=== PATIENT | female | born 1965 | race Caucasian/White ===

== ENCOUNTER 2020-02-02 21:49 | Emergency (ER) | payer MEDICAID, SELFPAY ==
[2020-02-02 22:33] VITALS: BP 144/114; PULSE 93; RESP 18; TEMP 37.6; O2SAT 98; BMI 34.3
--- NOTE | 2020-02-02 22:38 | XRR_ITS ---
PROCEDURE INFORMATION: Exam: XR Soft Tissue Neck Exam date and time: 02/02/2020 11:11 PM Age: 54 years old Clinical indication: Mass, lump, or swelling in neck; Throat pain; Prior surgery; Surgery type: C-spine TECHNIQUE: Imaging protocol: XR of the soft tissues of the neck. COMPARISON: CR Cervical Spine Flex/Ext [id number] 12/23/2017 11:06 AM FINDINGS: Airway: Unremarkable. No abnormal narrowing. Soft tissues: Unremarkable. Normal epiglottis. No visible radiopaque foreign body. No visible soft tissue emphysema. Bones/joints: Previous cervical spine fusion with anterior compression plate and screw fixation C5, C6, and C7. XR/XR soft tissue neck [id number] IMPRESSION: Nonacute.
--- NOTE | 2020-02-02 22:38 | XR_ITS ---
WS: [id number] PORTABLE CHEST HISTORY: cough COMPARISON: 10/20/2015 Pulmonary hyperexpansion with changes of emphysema. No pneumonia. No pleural effusion or pneumothorax. Cardiac size: Normal. Mediastinum/Aorta: Normal mediastinum. No osseous abnormality seen. Dorsal column stimulator over the mid thorax. XR/XR chest 1V portable [id number] IMPRESSION: 1. Chronic emphysema with no pneumonia. 2. Normal vasculature.
[2020-02-02 23:16] LABS: Basophils # 0.1 10^3/uL (0.0-0.1); Basophils % 0.7 %; Eosinophils # 0.1 10^3/uL (0.0-0.8); Hematocrit 45.3 % (37.0-47.0); Hemoglobin 14.5 g/dL (11.5-15.3); Lymphocytes # 2.6 10^3/uL (0.8-4.8); Lymphocytes % 19.3 %; Mean Corpuscular Hemoglobin 30.6 pg (28.0-34.0); Mean Corpuscular Volume 95.6 fL (81-99); Mean Platelet Volume 10.4 fL (7.4-10.4); Neutrophils # 9.7 10^3/uL (1.8-7.7); Neutrophils % 71.8 %; Nucleated Red Blood Cells % 0 %; Platelet Count 363 10^3/cmm (130-400); Red Blood Count 4.74 10^6/uL (4.1-5.3); Red Cell Distribution Width 13.1 % (12.1-15.1); White Blood Count 13.5 10^3/uL (4.0-10.0)
--- NOTE | 2020-02-02 23:16 | ED_ITS ---
HPI - Fever General: Chief Complaint: Fever Stated Complaint: swollen throat Time Seen by Provider: 02/02/20 22:30 History of Present Illness: HPI Narrative: Akosua is a nice 54-year-old female who comes in complaining of sore throat, hoarse voice and fever. She states her symptoms started yesterday. Her temperature is been as high as 100.4. She has occasional cough that is nonproductive. She denies any chest pain or shortness of breath. She's her primary pain is in her throat. She denies being around anyone sick or ill. She doesn't have any other complaints or concerns. Associated symptoms: Deny abdominal pain, flank pain, chills, chest pain, confusion, diarrhea, dysuria, extremity pain, headache(s), nausea, night sweats or vomiting Review of Systems Const: Denies: fever(s), chills, body aches, fatigue, malaise, night sweats or diaphoresis Eyes: Denies: change in vision, blurry vision or blind spots ENMT: Reports: throat pain and hoarseness; Denies: odynophagia, ear or mastoid pain, ear discharge, change in hearing or nasal discharge Card: Denies: chest pain, palpitations, irregular heart rhythm, lightheadedness, syncope, pre-syncope, dyspnea on exertion or orthopnea Resp: Denies: dyspnea, productive cough, non-productive cough, wheezing, hemoptysis or chest congestion GI: Denies: abdominal pain, nausea, vomiting, hematemesis, coffee ground emesis, heartburn, diarrhea, constipation, GI cramping, hematochezia or melena : Denies: flank pain, dysuria, urinary frequency, urinary urgency, oliguria, urinary incontinence or hematuria Musc: Denies: neck pain, back pain, extremity pain, extremity swelling, joint pain, joint swelling, joint redness, joint warmth or joint stiffness Skin/Breast: Denies: rash, pruritus, erythema, skin tenderness or jaundice Neuro: Denies: headache(s), numbness in extremities, weakness in extremities, sensory changes, lack of coordination, difficulty walking, dizziness, vertigo, confusion or Slurred speech present Endo: Denies: polyuria, polydipsia, tired all the time, cold intolerance, excessive sweating, flushing, hot flashes or heat intolerance Avi/Lymph: Denies: easy bruising, easy bleeding, petechiae, purpura or enlarged lymph nodes All/Imm: Denies: urticaria, throat swelling, tongue swelling, facial swelling or acute wheezing PFSH ED PFSH: Social History Smoking and tobacco status: unknown if ever smoked Physical Exam Const: COMMON NORMALS: no acute distress, patient oriented x3, no limitations, healthy appearing and well nourished EXAM LIMITATIONS: no altered mental status GENERAL APPEARANCE: cooperative, well kempt and well developed HENMT: COMMON NORMALS: normocephalic, atraumatic, hearing grossly normal bilaterally, external ears normal, EAC's normal, Normal external nose present and moist oral mucous membranes HEAD & SCALP: normal to inspection, normocephalic and atraumatic FACE & SINUS: normal facial exam and face symmetric NOSE: Normal external nose present and Normal nares present EXTERNAL EAR: Yes external ears normal EXTERNAL AUDITORY CANAL: EAC's normal MOUTH: Normal oral and palatal mucosa present, lip normal and tongue normal Eye: COMMON NORMALS: Equal, round and reactive pupils present, EOMs intact bilaterally, conjunctivae normal and no scleral icterus GENERAL EYE: appearance normal, both eyes and all related structures ALIGNMENT: Yes alignment normal PERIORBITAL: periorbital findings normal EYELID: eyelids normal CONJUNCTIVA: Yes conjunctivae normal SCLERA: sclerae normal PUPIL: Yes Equal, round and reactive pupils present Neck/C-Spine: COMMON NORMALS: full ROM, no lymphadenopathy, supple, no meningeal signs and no JVD GENERAL: Yes normal visual inspection and Yes trachea midline CERVICAL SPINE: Yes cervical ROM normal Chest: COMMONS NORMALS: normal inspection of the chest and normal palpation of entire chest wall Resp: COMMON NORMALS: normal respiratory effort, No retractions, No use of accessory muscles and clear to auscultation bilaterally EFFORT & INSPECTION: Yes able to speak in complete sentences AUSCULTATION: clear to auscultation bilaterally, no crackles, no rales, no rhonchi and no wheezes Cardio: COMMON NORMALS: no JVD, regular rate, regular rhythm, S1 normal heart sound present, S2 normal heart sound present, No gallops present (Cardio), No clicks present (Cardio), No murmurs present (Cardio) and No rub (Cardio) RATE: regular rate RHYTHM: regular rhythm HEART SOUNDS: S1 normal heart sound present, S2 normal heart sound present, no click, no gallops, no murmurs and no rubs GI: COMMON NORMALS: Soft to palpation, non-tender, No hepatosplenomegaly prese nt and no masses PALPATION: Yes Soft to palpation, No Tenderness to palpation present (GI), No Guarding due to palpation present (GI), No Rigid due to palpation, Yes No hepatosplenomegaly present, No Hernia present, No Palpable mass present and No Pulsatile mass present : COMMON NORMALS: Yes no CVA tenderness BLADDER/KIDNEY EXAM: Yes no CVA tenderness EXTERNAL FEMALE EXAM: No Hernia present Back/Pelvis: COMMON NORMALS: no CVA tenderness, thoracic and lumbar spine normal to inspection, no thoracic nor lumbar tenderness and thoraco-lumbar ROM normal Extremity: COMMON NORMALS: normal to inspection, full ROM, capillary refill normal, no joint enlargement, no clubbing, cyanosis or edema and no calf tenderness Neuro: COMMON NORMALS: patient oriented x3, CN's II-XII intact bilaterally, moves all extremities, no focal motor deficits and no sensory deficits noted MENINGEAL SIGNS: Yes no meningeal signs SPEECH: speech normal Psych: COMMON NORMALS: mental status grossly normal, Normal thought process present, cooperative, normal affect, speech normal and activity/motor behavior normal APPEARANCE: Yes well kempt SPEECH: Yes normal speech THOUGHT PROCESS: Normal thought process present Skin: COMMON NORMALS: no rashes or lesions noted, turgor normal, no jaundice, no petechiae and no mottling GENERAL SKIN EXAM: no rashes or lesions noted and turgor normal Course Vital Signs: Vital signs: Vital Signs Temperature 99.6 F 02/02/20 22:33 Pulse Rate 87 02/03/20 01:25 Respiratory Rate 20 H 02/03/20 01:25 Blood Pressure 127/80 02/03/20 01:25 Pulse Oximetry 98 02/03/20 01:25 MDM - Fever MDM Narrative: Medical decision making narrative: Akosua is a very nice 54-year-old female comes in with a one-day history of sore throat. She is had a fever as high as 100.4 at home. She is had no ill contacts with anyone with COVID symptoms or otherwise. She is feeling better here and ready to go home. She understands she needs to quarantine herself until her COVID test is back. Until then I will empirically start her on Augmentin. She has no questions or concerns, she is no evidence of airway issue. Lab Data: Labs: Lab Results 02/02/20 02/02/20 02/02/20 Range/Units 22:50 22:50 23:56 WBC 13.5 H (4.0-10.0) 10^3/ uL RBC 4.74 (4.1-5.3) 10^6/u L Hgb 14.5 (11.5-15.3) g/dL Hct 45.3 (37.0-47.0) % MCV 95.6 (81-99) fL MCH 30.6 (28.0-34.0) pg MCHC 32.0 (30.0-36.0) g/dL RDW 13.1 (12.1-15.1) % Plt Count 363 (130-400) 10^3/c mm MPV 10.4 (7.4-10.4) fL Neut % (Auto) 71.8 % Lymph % (Auto) 19.3 % Cavalier % (Auto) 7.0 % Eos % (Auto) 1.0 % Baso % (Auto) 0.7 % Neut # (Auto) 9.7 H (1.8-7.7) 10^3/u L Lymph # (Auto) 2.6 (0.8-4.8) 10^3/u L Cavalier # (Auto) 1.0 H (0.2-0.9) 10^3/u L Eos # (Auto) 0.1 (0.0-0.8) 10^3/u L Baso # (Auto) 0.1 (0.0-0.1) 10^3/u L Nucleated RBC % (a uto) 0 % Nucleated RBCs # 0.0 /100WBC Sodium 140 (136-145) mmol/L Potassium 3.9 (3.5-5.1) mmol/L Chloride 102 (98-107) mmol/L Carbon Dioxide 25 (22-29) mmol/L Anion Gap 16.9 (5-19) BUN 10 (6-20) mg/dL Creatinine 0.8 (0.5-0.9) mg/dL GFR Calculation 74.5 L (90-130) mL/min Glucose 96 (65-115) mg/dL Calculated Osmolal ity 286 (285-295) mOsm/k g Calcium 9.3 (8.5-10.5) mg/dL Total Bilirubin 0.2 (0.15-1.2) mg/dL AST 16 (0-32) U/L ALT 15 (0-33) U/L Alkaline Phosphata se 92 (35-105) IU/L Troponin T Baselin e (0-10) ng/mL Total Protein 7.3 (6.6-8.7) g/dL Albumin 4.3 (3.5-5.2) g/dL Globulin 3.0 (1.3-4.6) g/dL Influenza Type A A g (Negative) Influenza Type B A g (Negative) Group A Strep Rapi d Negative (Negative) 02/03/20 02/03/20 Range/Units 00:33 01:05 WBC (4.0-10.0) 10^3/ uL RBC (4.1-5.3) 10^6/u L Hgb (11.5-15.3) g/dL Hct (37.0-47.0) % MCV (81-99) fL MCH (28.0-34.0) pg MCHC (30.0-36.0) g/dL RDW (12.1-15.1) % Plt Count (130-400) 10^3/c mm MPV (7.4-10.4) fL Neut % (Auto) % Lymph % (Auto) % Cavalier % (Auto) % Eos % (Auto) % Baso % (Auto) % Neut # (Auto) (1.8-7.7) 10^3/u L Lymph # (Auto) (0.8-4.8) 10^3/u L Cavalier # (Auto) (0.2-0.9) 10^3/u L Eos # (Auto) (0.0-0.8) 10^3/u L Baso # (Auto) (0.0-0.1) 10^3/u L Nucleated RBC % (a uto) % Nucleated RBCs # /100WBC Sodium (136-145) mmol/L Potassium (3.5-5.1) mmol/L Chloride (98-107) mmol/L Carbon Dioxide (22-29) mmol/L Anion Gap (5-19) BUN (6-20) mg/dL Creatinine (0.5-0.9) mg/dL GFR Calculation (90-130) mL/min Glucose (65-115) mg/dL Calculated Osmolal ity (285-295) mOsm/k g Calcium (8.5-10.5) mg/dL Total Bilirubin (0.15-1.2) mg/dL AST (0-32) U/L ALT (0-33) U/L Alkaline Phosphata se (35-105) IU/L Troponin T Baselin e 6 (0-10) ng/mL Total Protein (6.6-8.7) g/dL Albumin (3.5-5.2) g/dL Globulin (1.3-4.6) g/dL Influenza Type A A g Negative (Negative) Influenza Type B A g Negative (Negative) Group A Strep Rapi d (Negative) Imaging Data^: CT Soft Tissue Neck: Radiologist's impression: [place] [address] CT Scan Report Signed Patient: Akosua Alberts Unit #: [id number] : 1965 Age/Sex: 54 / F ADM Date: 02/02/20 Loc: ER Room/Bed: Attending Dr: Ordering Provider/Ordering MD: Leonila Cronin DO Date of Service: 02/02/20 Procedure(s): CT neck w con* [id number] Accession Number(s): [id number] Report Number: [id number] PROCEDURE INFORMATION: Exam: CT Neck With Contrast Exam date and time: 02/02/2020 11:18 PM Age: 54 years old Clinical indication: Mass, lump, or swelling in neck; Throat pain; Prior surgery TECHNIQUE: Imaging protocol: Computed tomography images of the neck with intravenous contrast. Radiation optimization: All CT scans at this facility use at least one of these dose optimization techniques: automated exposure control; mA and/or kV adjustment per patient size (includes targeted exams where dose is matched to clinical indication); or iterative reconstruction. Contrast material: OMNI 300; Contrast volume: 95 ml; Contrast route: 20G; COMPARISON: CR 02/02/2020 10:56 PM RADIATION DOSE METRICS: Total DLP: 698.78 mGy-cm FINDINGS: Nasopharynx: Unremarkable. Oropharynx: Unremarkable. No significant tonsillar enlargement. Hypopharynx: Unremarkable. Larynx: Unremarkable. Normal epiglottis. Retropharyngeal space: Unremarkable. Submandibular/Parotid glands: Normal. Glands are normal in size. Thyroid: Normal. No enlarged or calcified nodules. Lymph nodes: Borderline prominent anterior mediastinal lymph node. Trachea: Visualized trachea is unremarkable. Lungs: 6 mm nodule right upper lobe. Emphysema. Bones/joints: Anterior fusion hardware in place C5-C7. Soft tissues: See Lungs finding. CT/CT neck w con* [id number] IMPRESSION: 6 mm right upper lobe pulmonary nodule; for patients at low risk (minimal or absent history of smoking and of other known risk factors), recommend CT Chest at 3-6 months, then consider CT Chest at 18-24 months. For patients at high risk (history of smoking or of other known risk factors), recommend CT Chest at 3-6 months, then CT Chest at 18-24 months. MacMah[place] H, Fleischner Society, 2017. No acute findings otherwise. Radiation Dose CTDIVOL = (mGy): DLP = 698.78 (mGy-cm) Dictated By: Alvin Adams MD Signed By: Alvin Adams MD Signed Date/Time: 02/03/20156 DD/ 5 EKG Data^: EKG 1: Attestation: I personally reviewed and interpreted this EKG as follows: EKG interpretation date: 02/03/20 EKG interpretation time: 01:31 Interpretation: Normal sinus rhythm at 84 beats a minute, short IL interval, QTC, nonspecific T wave changes in aVL and V2, consistent with previous. Discharge Plan Discharge Patient Disposition: Home, Self-Care Clinical Impression: Incidental pulmonary nodule Pharyngitis Qualifiers: Pharyngitis/tonsillitis etiology: unspecified etiology Qualified Code(s): J02.9 - Acute pharyngitis, unspecified Condition: Stable Prescriptions: New Augmentin 875-125 mg tablet 1 tab PO BID 10 Days Qty: 20 RF: 0 No Action atorvastatin 40 mg tablet 40 mg PO DAILY 90 Days Qty: 90 RF: 3 clopidogrel 75 mg tablet 75 mg PO DAILY 90 Days Qty: 90 RF: 3 Discharge Orders: Discharge Order (Routine); Ordered 02/03/20 Ordered By: Leonila Cronin Referrals: Taryn Marley DO [Physician] - 4-7 days Discharge Diet: Advance as tolerated Discharge Activity: Increase activity as tolerated Patient Instructions: Pharyngitis (ED), Pulmonary Nodules (ED) Activity Restrictions/Additional Instructions: Keep yourself at home and quarantined away from people until you receive the results of your COVID test. Take the antibiotics as I have prescribed. Her to the ER for increased pain, difficulty breathing, vomiting, or for any other cause for concern. Coding Level of Care Code ED Owner/Photographer for Chg Fwd Exam Comprehensive
[2020-02-02 23:33] LABS: Alanine Aminotransferase 15 U/L (0-33); Albumin Level 4.3 g/dL (3.5-5.2); Alkaline Phosphatase 92 IU/L (35-105); Anion Gap 16.9 (5-19); Aspartate Amino Transferase 16 U/L (0-32); Blood Urea Nitrogen 10 mg/dL (6-20); Calcium 9.3 mg/dL (8.5-10.5); Carbon Dioxide 25 mmol/L (22-29); Chloride 102 mmol/L (98-107); Glomerular Filtration Rate 74.5 mL/min (90-130); Glucose 96 mg/dL (65-115); Osmolality Calculated 286 mOsm/kg (285-295); Potassium 3.9 mmol/L (3.5-5.1); Sodium 140 mmol/L (136-145); Total Bilirubin 0.2 mg/dL (0.15-1.2); Total Protein 7.3 g/dL (6.6-8.7)
[2020-02-03 00:07] VITALS: BP 156/72; PULSE 79; RESP 18; O2SAT 97
[2020-02-03] MEDS: sodium chloride 0.9% 1,000 ML 999 ML IV (00:28)
[2020-02-03 00:50] LABS: Rapid Strep A Test Negative (Negative)
[2020-02-03] MEDS: iohexol 300 mg/mL 100 mL Btl IV (00:58)
[2020-02-03 01:25] VITALS: BP 127/80; PULSE 87; RESP 20; O2SAT 98
[2020-02-03 01:43] LABS: Troponin(5th) Baseline 6 ng/mL (0-10)
[2020-02-03 02:01] LABS: Influenza A by IFA Negative (Negative); Influenza B by IFA Negative (Negative)
[2020-02-03] MEDS: amoxicillin-clav 875-125 mg Tablet 1 TAB PO (02:13)
[2020-02-03 02:14] VITALS: BP 146/96; PULSE 90; RESP 20; O2SAT 96
[2020-02-03] MEDS: HYDROcodone-acetaminophen 5-325 mg Tablet 1 TAB PO (02:23)
[2020-02-05 18:27] LABS: Quest SARS-CoV-2 RNA NOT DETECTED (NOT DETECTED)
== END 2020-02-03 02:17 | disposition home or self-care (01) ==
PROVIDERS: Emergency Provider Emergency Medicine
DX: J02.9 Acute pharyngitis, unspecified (principal); R91.1 Solitary pulmonary nodule; Z79.02 Long term (current) use of antithrombotics/antiplatelets
CPT/HCPCS: 12345; 36415; 70360; 70491; 71045; 80053; 84484; 85025; 87040; 87081; 87635; 87804; 87880; 96360; 99283; 99284; J7030; Q9967

== ENCOUNTER → 2020-05-20 09:46 | Outpatient (BNVA) | payer MEDICAID, SELFPAY | PROVIDERS: Visit Provider Internal Medicine | DX: Z11.59 Encounter for screening for other viral diseases (principal) | CPT/HCPCS: 87635 ==

== ENCOUNTER 2020-05-23 13:09 | Outpatient (CLI) | payer MEDICAID, SELFPAY ==
--- NOTE | 2020-05-23 13:25 | CT_ITS ---
WS: [id number] CT CHEST WITH INTRAVENOUS CONTRAST HISTORY: CHRONIC PULMONARY DISEASE, ABNORMAL FINDING OF LUNG FIELD TECHNIQUE: Contiguous 5 mm axial imaging performed on the thorax. Coronal and sagittal reformats are submitted. All CT scans at [facility] use at least one of these dose optimization techniq ues: automated exposure control; mA and/or kV adjustment per patient size (includes targeted exams wh ere dose is matched to clinical indication); or iterative reconstruction. CONTRAST: Omnipaque 300; 95 mL IV. DLP: 757.38 mGy.cm COMPARISON: 02/03/2020 Lungs and central airway: Mild changes of mild chronic emphysema. Subpleural RIGHT upper lobe pulmona ry nodule measures 5.2 mm and has not increased in size since the prior study. Additional 5 mm subple ural nodule RIGHT upper lobe, image 26 of series 3. Linear interstitial thickening RIGHT upper lobe abuts the fissure. 5.5 mm pleural thickening along the minor fissure. Mild pleural thickening posteri jessica on the LEFT. Pleura: Mild pleural thickening with no effusion. Heart and pericardium: Normal size heart with no pericardial effusion. Mediastinum and kailash: No mediastinal or hilar lymph nodes. Largest lymph node at the RIGHT hilum miguelina ures 9.6 mm. Vessels: Mild atherosclerosis aorta. Pulmonary artery size is equal to the aorta. Chest wall and lower neck: No soft tissue masses. Upper abdomen: Small hiatal hernia. Hepatic steatosis. Osseous structures: Prior cervical fusion. Dorsal column stimulator over the mid thoracic spine. CT/CT chest w con* [id number] IMPRESSION: 1. Stable subpleural RIGHT upper lobe 5 mm pulmonary nodule since 02/03/2020. 2. Additional subcentimeter pulmonary nodules and pleural thickening. Recommen d 6-[address] follow-up with contrast. 3. Chronic emphysema.
[2020-05-23] MEDS: iohexol 300 mg/mL 100 mL Btl IV (13:44)
== END 2020-05-23 13:10 | disposition home or self-care (01) ==
LOC: RT 13:19 → RAD 13:26
PROVIDERS: Visit Provider Internal Medicine
DX: J44.9 Chronic obstructive pulmonary disease, unspecified (principal); R91.8 Other nonspecific abnormal finding of lung field
CPT/HCPCS: 71260

== ENCOUNTER → 2020-05-27 10:38 | Outpatient (BNVA) | payer MEDICAID, SELFPAY | PROVIDERS: Visit Provider Internal Medicine | DX: Z20.828 Contact with and (suspected) exposure to other viral communicable diseases (principal) | CPT/HCPCS: 87635 ==

== ENCOUNTER 2020-06-02 13:32 | Outpatient (CLI) | payer MEDICAID, SELFPAY ==
--- NOTE | 2020-06-02 16:00 | PFTS_ITS ---
Date of Study:06/02/20 Date of Dictation: MECHANICS: Forced vital capacity (FVC) is normal. Forced expiratory volume in one second (FEV1) is normal. FEV1/FVC is normal. FLOW VOLUME LOOP: There is no initial peak flow on the expiratory limb by flow volume loop. According to documentation, the patient had difficulty maintaining a tight seal. LUNG VOLUMES: Total lung capacity (TLC) is normal. Residual volume (RV) is increased. DIFFUSING CAPACITY FOR CARBON MONOXIDE: Mildly reduced. INTERPRETATION: The spirometry is normal. The increased residual volume could be secondary to small airways disease in the setting of smoking. Gas exchange (DLCO) is normal. MTDD
== END 2020-06-02 13:33 | disposition home or self-care (01) ==
LOC: RT 13:35
PROVIDERS: PCP Nurse Practitioner Family; Visit Provider Internal Medicine
DX: J44.9 Chronic obstructive pulmonary disease, unspecified (principal)
CPT/HCPCS: 94010; 94726; 94729

== ENCOUNTER 2021-04-19 09:07 | Outpatient (CLI) | payer MEDICAID, SELFPAY ==
[2021-04-19 10:00] VITALS: BMI 34.3
--- NOTE | 2021-04-19 10:35 | NMCV_ITS ---
NM usha perf SPECT r/s* [id number] Akosua Alberts Age: 55 Gender: F : 1965 Exam Date: 04/19/2021 10:34 Ordering Phys: Kaden Wolfe M.D ([email or web address]) Technologist: DAISY Gaspar Exam Location: [facility] Indications: CHEST PAIN STRESS TEST [facility] IMAGE PROTOCOL Rest/Stress 1 Lexiscan Day Radiopharmaceutical Dose (mCi) Administration Site Administered by Rest: Tc-99m 10.7 IV DAISY Brown Sestamibi Stress:Tc-99m 32.3 IV DAISY Gaspar Sestamiveronica Rest: 19-Apr-2021 60 Discovery 630 Stress: 19-Apr-2021 30 Discovery 630 0.4mg Lexiscan. Images obtained in supine and prone position. SPECT RESULTS Technical Quality: Excellent Raw Data Analysis: Normal Image Corrections: No attenuation or motion correction applied Summed Stress Score: 5 Summed Rest Score: 1 Summed Difference Score: 4 PERFUSION FINDINGS There is a small in size, reversible perfusion defect in the apical lateral and apical inferior ceron. This is consistent with small area of ischemia FUNCTIONAL RESULTS (calculated via Gated SPECT) Stress Image LV EF (%): 69 Stress EDV (mL):80 TID: 1.09 Stress ESV (mL):25 FUNCTIONAL FINDINGS: There is normal left ventricular systolic function. IMPRESSIONS 1. Abnormal myocardial perfusion imaging with small area of ischemia in the apical lateral and apical inferior ceron 2. LV systolic function is normal Kaden Wolfe MD (Electronically Signed) Final Date: 19 April 2021 17:42 S
--- NOTE | 2021-04-19 10:35 | ECG_ITS ---
[facility] Test Date: 2021-04-19 Pat Name: Akosua Alberts Department: Room: Gender: Female Sales Solutions Representative: : 1965 Requested By: Kaden Wolfe Order Number: [id number] María Elena MD: Kaden Wolfe M.D. Interpretive Statements NAME OF STUDY: LEXISCAN SESTAMIBI STRESS TEST INDICATION: [Chest Pain, ] Procedure: At the baseline, the blood pressure was 117/79 mmHg with a heart rate of 71 bpm. The electrocardiogram showed normal sinus rhythm, normal axis with normal ST and T's. The Lexiscan was infused over a period of 20 seconds. A total of 0.4 mg of Lexiscan was infused. The stress phase was continued for a total of 5 minutes. Heart rate was at the end of stress phase was 76 bpm and a blood pressure of 116/81 mmHg. The EKG at the peak infusion revealed since normal sinus rhythm with no significant ST-T wave changes. Sestamibi was injected 20 seconds after the Lexiscan infusion. Blood pressure at the end of recovery phase was 111/80 mmHg with a heart rate of 75 bpm. Conclusion: 1. Normal EKG response to Lexiscan infusion 2. No Lexiscan induced chest pain or cardiac arrhythmia. 3. Normal blood pressure and heart rate response. 4. Sestamibi/sestamibi perfusion scan pending; see separate report. Electronically Signed On 05-21-2021 12:36:32 CDT by Kaden Wolfe M.D. [email or web address]
[2021-04-19 11:24] VITALS: BP 111/80; PULSE 75
[2021-04-19] MEDS: regadenoson 0.4 Mg/5 ml Syringe IVP (11:25)
== END 2021-04-19 09:08 | disposition home or self-care (01) ==
LOC: RAD 09:12 → CDL 10:19
PROVIDERS: PCP Nurse Practitioner Family; Visit Provider Internal Medicine
DX: R07.9 Chest pain, unspecified (principal)
CPT/HCPCS: 78452; 93017; A9500; J2785

== ENCOUNTER → 2022-05-08 09:50 | Outpatient (BNVA) | payer MEDICAID, SELFPAY | PROVIDERS: PCP Nurse Practitioner Family; Visit Provider Orthopaedic Surgery | DX: M17.0 Bilateral primary osteoarthritis of knee (principal) | CPT/HCPCS: 20610; 73560; 73565; 99203; J0702; J3490 ==

== ENCOUNTER → 2022-06-12 13:14 | Outpatient (BNVA) | payer MEDICAID, SELFPAY | PROVIDERS: PCP Nurse Practitioner Family; Visit Provider Orthopaedic Surgery | DX: M65.331 Trigger finger, right middle finger (principal); M54.30 Sciatica, unspecified side | CPT/HCPCS: 20550; 99213; J0702; J3490 ==

== ENCOUNTER → 2022-07-09 12:52 | Outpatient (BNVA) | payer MEDICAID, SELFPAY | PROVIDERS: PCP Nurse Practitioner Family; Visit Provider Internal Medicine Cardiovascular Disease | DX: R07.9 Chest pain, unspecified (principal); J44.9 Chronic obstructive pulmonary disease, unspecified; I10 Essential (primary) hypertension; K21.9 Gastro-esophageal reflux disease without esophagitis; G47.30 Sleep apnea, unspecified; I25.10 Atherosclerotic heart disease of native coronary artery without angina pectoris; E78.5 Hyperlipidemia, unspecified; F17.210 Nicotine dependence, cigarettes, uncomplicated | CPT/HCPCS: 99213 ==

== ENCOUNTER → 2022-07-17 13:25 | Outpatient (BNVA) | payer MEDICAID, SELFPAY | PROVIDERS: PCP Nurse Practitioner Family; Visit Provider Orthopaedic Surgery | DX: M65.331 Trigger finger, right middle finger (principal); M18.12 Unilateral primary osteoarthritis of first carpometacarpal joint, left hand | CPT/HCPCS: 73130; 99213 ==

== ENCOUNTER 2022-07-17 15:44 | Outpatient (CLI) | payer MEDICAID, SELFPAY | END 2022-07-17 15:45 | disposition home or self-care (01) | LOC: SPT 15:44 | PROVIDERS: PCP Nurse Practitioner Family; Visit Provider Orthopaedic Surgery | DX: Z46.89 Encounter for fitting and adjustment of other specified devices (principal); M18.12 Unilateral primary osteoarthritis of first carpometacarpal joint, left hand | CPT/HCPCS: 97760; L3924 ==

== ENCOUNTER 2022-09-06 09:06 | Day surgery (SDC) | payer MEDICAID, SELFPAY ==
[2022-09-06 09:20] VITALS: BP 114/86; PULSE 88; RESP 18; TEMP 36.1; O2SAT 97
--- NOTE | 2022-09-06 09:27 | ANES.PREANE2 ---
Pre-Anesthetic Assessment Height/Weight: Height 1.63 m Weight 99.79 kg Temp Pulse Resp BP Pulse Ox O2 Del Method 97 F L 88 18 114/86 97 09/06/22 09:20 09/06/22 09:20 09/06/22 09:20 09/06/22 09:20 09/06/22 09:20 09/06/22 09:21 Preop Diagnosis: Right long finger trigger finger, osteoarthritis left thumb Operation Date: 09/06/22 10:40 Proposed Procedures p right long trigger finger release & cortisone injection left 1st [facility] joint/ 97268 & 00137 M18.12(Right) - Eugene Garcia MD Familial anesthetic complications: None Was Beta Zoila taken within 24 hours: N/A Was Clonidine taken within 24 hours: N/A Last intake: Intake Last Liquid Date 09/05/22 Last Liquid Time 18:30 Last Solid Date 09/05/22 Last Solid Time 18:30 Social Tobacco and No alcohol marijuana - used this morning Exam alert, oriented x 3, clear to auscultation bilaterally and regular rate & rhythm Airway Mallampati: Class II Dentition: false Pulmonary Sleep Apnea CV/HEM Stable Angina, Coronary Artery Disease and Hypertension Patient had a stress test done last year which showed meredith-infarct ischemia in the LAD territory. This was followed by a call cardiac cath, which showed 99% mid RCA stenosis (small vessel), mid LAD 50% stenosis, 70 to 80% stenosis of first and second diagonal vessels ostially.? Medical management was decided. ? GI Gastroesophageal Reflux Disease Metabolic Hyperlipidemia [facility] Fibromyalgia and Rheumatoid Arthritis Anesthetic Plan ASA status: 4 Anesthesia: MAC Risk of > 500 ml blood loss (7ml/kg in children): No Medications/Allergies Home Medications Medication Instructions Recorded Confirmed Last Taken Type albuterol sulfate 90 mcg/actuation 1 inh inhalation .TWICE DAILY 04/13/20 09/06/22 09/05/22 History aerosol inhaler (Proventil HFA) aripiprazole 20 mg tablet (Abilify) 20 mg PO DAILY 04/13/20 09/05/22 09/05/22 History budesonide-formoterol HFA 160 2 puff inhalation BID 04/13/20 09/05/22 09/05/22 History mcg-4.5 mcg/actuation aerosol inhaler (Symbicort) furosemide 20 mg tablet 20 mg PO DAILY 04/13/20 09/05/22 09/05/22 History metoprolol succinate 25 mg 25 mg PO DAILY 04/13/20 09/05/22 09/05/22 History tablet,extended release 24 hr venlafaxine 75 mg capsule,extended 75 mg PO DAILY 04/13/20 09/05/22 09/05/22 History release 24 hr (Effexor XR) nitroglycerin 0.4 mg sublingual 0.4 mg sublingual Q5M PRN chest 04/11/21 09/05/22 Unknown Rx tablet pain #25 tabs clopidogrel 75 mg tablet 75 mg PO DAILY #90 tabs 10/03/21 09/05/22 08/18/22 Rx atorvastatin 40 mg tablet 40 mg PO DAILY #90 tabs 11/03/21 09/05/22 09/05/22 Rx diclofenac sodium 1 % topical gel g topical ONCE PRN Pain 07/09/22 07/17/22 09/05/22 History CMC brace #1 ea 07/17/22 07/17/22 Unknown Rx Allergies Allergy/AdvReac Type Severity Reaction Status Date / Time aspirin Allergy Severe HIVES Verified 09/06/22 09:15 ibuprofen [From Motrin] Allergy Severe HIVES Verified 09/06/22 09:15 Opioids - Morphine Analogues Allergy Severe SHOCK Verified 09/06/22 09:15 [facility] Anesthesia Medical History CAD (coronary artery disease) COPD (chronic obstructive pulmonary disease) Dyslipidemia GERD (gastroesophageal reflux disease) HTN (hypertension), benign Sleep apnea Tobacco abuse Family History Mother CAD (coronary artery disease) Hypertension Stroke Sister CAD (coronary artery disease) Cancer Social History Smoking and tobacco status: current every day smoker cigarettes Packs smoked per day: 1 Years cigarettes smoked: 45 Alcohol intake: never Data Anesthesia 09/06/22 09:30 Cardiac Studies: Sestamibi Stress Test (Cardiology) 04/19/21
[2022-09-06] MEDS: sodium chloride 0.9% 1,000 ML 30 ML IV (09:45)
[2022-09-06 10:18] LABS: Blood Urea Nitrogen 19 mg/dL (6-20); Calcium 9.1 mg/dL (8.5-10.5); Carbon Dioxide 23 mmol/L (22-29); Chloride 104 mmol/L (98-107); Glucose 93 mg/dL (65-115); Osmolality Calculated 286 mOsm/kg (285-295); Sodium 137 mmol/L (136-145)
[2022-09-06 10:24] LABS: Anion Gap 14.1 (5-19); Potassium 4.1 mmol/L (3.5-5.1)
--- NOTE | 2022-09-06 11:23 | W.PM.OPSFHP ---
Same Day Surgery H&P Indication for Procedure/HPI DATE OF PROCEDURE: September 06, 2022 CHIEF COMPLAINT/INDICATIONFOR SURGICAL PROCEDURE: Right long finger trigger finger, osteoarthritis thumb carpometacarpal joint. Here for right trigger finger release and injection left thumb PREOP DIAGNOSIS: Right long finger trigger finger, osteoarthritis left thumb PLANNED PROCEDURE: Operation Date: 09/06/22 10:40 Proposed Procedures p right long trigger finger release & cortisone injection left 1st [facility] joint/ 85117 & 00700 M18.12(Right) - Eugene Garcia MD 56 year old female patient here for follow up of her left thumb injection and right long finger trigger finger release. Previous injection to the right long finger actually made her triggering and pain worse.? Describes continued pain and catching in the right long finger.? She describes at times it catching to where she cannot even physically straighten out the digit.? She describes continued pain at the base of the thumb rating as far distally as her metacarpal phalangeal joint. She describes the pain generally worse with use Medications/Allergies* Home Medications Medication Instructions Recorded Confirmed Type albuterol sulfate 90 mcg/actuation 1 inh inhalation .TWICE DAILY 04/13/20 09/06/22 History aerosol inhaler (Proventil HFA) aripiprazole 20 mg tablet (Abilify) 20 mg PO DAILY 04/13/20 09/05/22 History budesonide-formoterol HFA 160 2 puff inhalation BID 04/13/20 09/05/22 History mcg-4.5 mcg/actuation aerosol inhaler (Symbicort) furosemide 20 mg tablet 20 mg PO DAILY 04/13/20 09/05/22 History metoprolol succinate 25 mg 25 mg PO DAILY 04/13/20 09/05/22 History tablet,extended release 24 hr venlafaxine 75 mg capsule,extended 75 mg PO DAILY 04/13/20 09/05/22 History release 24 hr (Effexor XR) diclofenac sodium 1 % topical gel g topical ONCE PRN Pain 07/09/22 07/17/22 History Allergies/Adverse Reactions Allergy/AdvReac Type Severity Reaction Status Date / Time aspirin Allergy Severe HIVES Verified 09/06/22 09:15 ibuprofen [From Motrin] Allergy Severe HIVES Verified 09/06/22 09:15 Opioids - Morphine Analogues Allergy Severe SHOCK Verified 09/06/22 09:15 Current Medications: Generic Name Dose Route Start Last Admin Trade Name Freq PRN Reason Stop Dose Admin Sodium Chloride 1,000 mls @ 30 mls/hr 09/06/22 09:15 09/06/22 09:45 Sodium Chloride 0.9% IV 09/07/22 09:14 30 mls/hr .Q24H RACHEL Administration Pertinent History/Comorbid Conditions* Medical History (Updated 07/09/22 @ 13:50 by Luis Alberto Hilton MD) CAD (coronary artery disease) COPD (chronic obstructive pulmonary disease) Dyslipidemia GERD (gastroesophageal reflux disease) HTN (hypertension), benign Sleep apnea Tobacco abuse Family History (Updated 04/13/20 @ 14:21 by Marissa Chavez LPN) CAD (coronary artery disease) Mother Sister Cancer Sister Hypertension Mother Stroke Mother Social History Smoking and tobacco status: current every day smoker cigarettes Packs smoked per day: 1 Years cigarettes smoked: 45 Alcohol intake: never Pertinent Exam Findings alert, oriented x 3, clear to auscultation bilaterally, regular rate & rhythm and operative site marked Right hand On examination of the right hand there is tenderness over the A1 patric of the long finger with flexion extension of the digit catching is felt.? She can reach a complete clenched fist as well as extend the digit.? Skin is healthy. On examination of the left hand she has tenderness over the thumb metacarpal phalangeal joint positive grind test.? Ogrge's test is negative.? Sensation is intact to light touch. Recommendations Surgery/Procedure today Coding Level of Care Code Acute Mailing Clerk for [employer]
[2022-09-06] MEDS: ceFAZolin 2,000 MG in sodium chloride 0.9% (plus) 50 ML 100 MG IV (11:35)
[2022-09-06] MEDS: betamethasone susp 6 mg/mL 5 mL IM (12:05)
--- NOTE | 2022-09-06 12:11 | PM.OP ---
Operative Report Date of procedure: September 06, 2022 Pre-op diagnosis: Preop Diagnosis Right long finger trigger finger, osteoarthritis left thumb Procedure done: Right long finger trigger finger release, injection left thumb carpometacarpal joint (small joint) Pathology: none sent Surgeon: Eugene Garcia Anesthesia: MAC Estimated blood loss (mL): 2 Complications: None Findings: The patient had scarring about her left long finger A1 patric. Condition: stable Disposition: other Brief History: 56-year-old female with painful locking right hand long finger and pain at the base of the left thumb. Injection in right long finger without improvement. Here for elective right long finger trigger finger release. I told her we could inject her left thumb carpometacarpal joint as well Procedure: The patient's hand was prepped in the usual fashion. A timeout was performed. The area over the A1 patric of the long finger was infiltrated with 6 cc of half percent Marcaine. A tourniquet was inflated 250 mm. I transverse incision was made over the level of a 1 patric in the palm over a distance of approximately a centimeter and a half. Under loupe magnification blunt dissection was accomplished down to the A1 patric. With adequate visualization a scalpel was used to divide the central 8 mm of that structure. Blunt scissors were then used to extend the release approximately 5 mm proximally and 5 mm distally. Tendons were pulled the road and inspected to assure there health. The skin edges were closed with 3-0 Prolene compressive dressings were applied. Attention was then focused on the left hand. The area over the left thumb carpometacarpal joint was prepped with Betadine. A 27-gauge needle was introduced in the area of the left thumb carpometacarpal joint and that joint infiltrated with 1/4 cc of Celestone Soluspan (6mg/cc and 3/4 cc of .5% Marcaine. The patient was taken recovery room in stable condition.
[2022-09-06 12:16] VITALS: BP 108/69; PULSE 80; RESP 12; TEMP 36.1; O2SAT 96
[2022-09-06 12:21] VITALS: BP 128/87; PULSE 77; RESP 16; O2SAT 97
[2022-09-06 12:26] VITALS: BP 132/93; PULSE 77; RESP 16; TEMP 36.3; O2SAT 94
[2022-09-06 12:34] VITALS: BP 120/93; PULSE 81; TEMP 36.1; O2SAT 93
[2022-09-06 12:44] VITALS: BP 120/93; PULSE 73; RESP 18; TEMP 36.3; O2SAT 94
--- NOTE | 2022-09-06 16:51 | ANE.PACU2 ---
Inpatient post-anesthesia follow up: Airway intact: Yes Vital signs: Temperature 97.3 F Pulse Rate 73 Respiratory Rate 18 Blood Pressure 120/93 Pulse Oximetry 94 Oxygen Delivery Me thod Room Air Oxygen Flow Rate Fraction of Inspir ed Oxygen Hydration adequate: Yes Nausea and vomiting: No Pain level: 1 Mental status: Baseline
== END 2022-09-06 13:03 | disposition home or self-care (01) ==
PROVIDERS: PCP Nurse Practitioner Family; Visit Provider Orthopaedic Surgery
PROC: (CPT 26055; principal; 2022-09-06 10:30)
DX: M65.331 Trigger finger, right middle finger (principal); M19.042 Primary osteoarthritis, left hand; I25.10 Atherosclerotic heart disease of native coronary artery without angina pectoris; J44.9 Chronic obstructive pulmonary disease, unspecified; E78.5 Hyperlipidemia, unspecified; K21.9 Gastro-esophageal reflux disease without esophagitis; I10 Essential (primary) hypertension; G47.30 Sleep apnea, unspecified; F17.210 Nicotine dependence, cigarettes, uncomplicated
CPT/HCPCS: 20600; 26055; 80048; J0690; J0702; J2704; J3010; J3490; J7030

== ENCOUNTER → 2022-09-11 14:05 | Outpatient (BNVA) | payer MEDICAID, SELFPAY | PROVIDERS: PCP Nurse Practitioner Family; Visit Provider Nurse Practitioner Family | DX: Z98.890 Other specified postprocedural states (principal) | CPT/HCPCS: 99024; 99213 ==

== ENCOUNTER → 2023-07-23 09:21 | Outpatient (BNVA) | payer MEDICAID, SELFPAY | PROVIDERS: PCP Nurse Practitioner Family; Visit Provider Internal Medicine Rheumatology | DX: Z79.899 Other long term (current) drug therapy (principal); M19.90 Unspecified osteoarthritis, unspecified site; Z11.1 Encounter for screening for respiratory tuberculosis; Z11.59 Encounter for screening for other viral diseases; L40.50 Arthropathic psoriasis, unspecified; L40.0 Psoriasis vulgaris; Z71.85 Encounter for immunization safety counseling; R91.8 Other nonspecific abnormal finding of lung field | CPT/HCPCS: 36415; 80076; 82565; 85025; 86140; 86480; 86704; 86803; 87340; 87522; 99204 ==

== ENCOUNTER → 2024-03-17 09:05 | Outpatient (BNVA) | payer MEDICAID, SELFPAY | PROVIDERS: PCP Nurse Practitioner Family; Visit Provider Internal Medicine Rheumatology | DX: L40.50 Arthropathic psoriasis, unspecified (principal); L40.0 Psoriasis vulgaris; Z79.899 Other long term (current) drug therapy; Z71.85 Encounter for immunization safety counseling; R91.8 Other nonspecific abnormal finding of lung field; Z11.1 Encounter for screening for respiratory tuberculosis; Z11.59 Encounter for screening for other viral diseases; F17.210 Nicotine dependence, cigarettes, uncomplicated | CPT/HCPCS: 99214 ==